=== PATIENT | male | born 1995 | race Caucasian/White ===

== ENCOUNTER 2016-07-10 17:52 | Emergency (ER) | payer BC, OTHER ==
[~2016-07-10 17:52] MED LIST: BACTRIM DS 8001 TAB PO; CEPHALEXIN250 M1; CEPHALEXIN250 M1 PO; CEPHALEXIN500 M1 PO
== END 2016-07-10 20:19 | disposition short-term general hospital (02) ==
LOC: ED 17:52
DX: E13.10 Other specified diabetes mellitus with ketoacidosis without coma (principal); F17.220 Nicotine dependence, chewing tobacco, uncomplicated; Z79.4 Long term (current) use of insulin
CPT/HCPCS: J1815; J7030

== ENCOUNTER → 2022-05-15 | Outpatient (CLI) | payer BC | LOC: RAD 14:01 | DX: M79.632 Pain in left forearm (principal) ==